=== PATIENT | female | born 1950 | race Caucasian/White ===

== ENCOUNTER 2016-10-30 11:33 | Inpatient (IN) | payer BC, OTHER ==
[2016-10-24 15:51] LABS: HEMATOCRIT 35.5 % (36.0-48.0); HEMOGLOBIN 11.6 g/dL (12.0-16.0)
[2016-10-24 16:03] LABS: CHLORIDE, SERUM 97 MMOL/L (96-112); CO2 (CARBON DIOXIDE) 30 MMOL/L (24-34); CREATININE 1.34 MG/DL (0.55-1.02); GFR AFRICAN AMERICAN 47 ML/MIN (>=60); GFR NON AFRICAN AMERICAN 41 ML/MIN (>=60); SODIUM, SERUM 134 MMOL/L (135-148)
[2016-10-24 16:04] LABS: BUN (BLOOD UREA NITROGEN) 26 MG/DL (6-23); CALCIUM, SERUM 8.8 MG/DL (8.5-10.4); GLUCOSE, SERUM 276 MG/DL (60-99)
--- NOTE | ~2016-10-30 | OP ---
Record Of Operation [facility] [address] [place]. [address] NAME: JAGUAR HANSON : 49 STATUS : ADM IN PAT#: [id number] AGE: 66 ADM/REG DATE : 10/30/16 MR#: [id number] REPORT SERV DATE: 10/30/16 DICTATED BY: RYAN OROURKE DATE: 10/30/16 REPORT STATUS : Draft TRANSCRIBED BY: MODL DATE: 10/30/16 DATE OF PROCEDURE: 10/30/2016 PREOPERATIVE DIAGNOSES: L4-5 recurrent disk herniation with disk disease and stenosis. L5- S1 disc disease and bilateral stenosis. Lumbar radiculopathy. POSTOPERATIVE DIAGNOSIS: L4-5 recurrent disk herniation with disk disease and stenosis. L5- S1 disc disease and bilateral stenosis. Lumbar radiculopathy. PROCEDURE: L4-L5 right-sided transforaminal lumbar interbody fusion, use of local morcellized autograft, use of allograft bone matrix, neuromonitoring, operative microscope, intraoperative O-arm CT scan with computer navigation and placement of pedicle screw instrumentation L4-L5 on the right side from [employer]. SURGEON: Ryan Orourke DO. ANESTHESIA: General. ESTIMATED BLOOD LOSS: 300 mL. COMPLICATIONS: None. INDICATIONS: The patient is a pleasant 66-year-old, who had a recurrent right-sided disc herniation and intractable back and leg pain, failed conservative treatment. After discussion of risks and benefits, elected to proceed with surgery. PROCEDURE IN DETAIL: I identified the patient in the holding area. Consent was obtained. Went to the operating room. Underwent general anesthesia with endotracheal intubation. Prepped and draped in the usual sterile fashion. Operative safety pause was performed, and then we proceeded. The O-arm registration frame was placed in the iliac crest. O-arm was brought in for intraoperative CT scan. Computer registration materials were verified. Under computer guidance, a right longitudinal incision was made over the L4-S1 levels taken down through the fascial layer. Tube dilators were used to minimally invasively dissect down to the right L4-5 interspace. Operative microscope was brought in. A james was used to perform a revision laminotomy and partial facetectomy. Dominick performed a foraminotomy. Disk was incised and multiple free fragments of disk were removed with pituitary. The disk space was prepared with curettes, rasp, and endplate cutters. Due to the severe soft nature of the bone, a peek spacer was not placed due to fear of subsidence. The disk space was packed with local morcellized autograft and allograft bone matrix. Due to the amount of bleeding that the patient had, I opted not to proceed on to the L5-S1 level. I initially planned, given her heart history, she had been off the blood thinners but continued to have more bleeding than I felt comfortable given her cardiac history. O arm was brought back in for a repeat CT scan. Computer registration materials were re-verified and screws were placed on the right-sided L4 and L5, and accomplish made to place screws on the left side as well but due to her very poor bone quality, there was no good purchase on that side, so that was aborted. Paulei was placed over the L4-5 screws, reduced down to the screws. Set screws Record Of Operation [address] [address] NAME: JAGUAR HANSON : 49 STATUS : ADM IN PAT#: [id number] AGE: 66 ADM/REG DATE : 10/30/16 MR#: [id number] REPORT SERV DATE: 10/30/16 DICTATED BY: RYAN OROURKE DATE: 10/30/16 REPORT STATUS : Draft TRANSCRIBED BY: MODL DATE: 10/30/16 were placed and final tightened. Reduction rods were removed for the towers were removed. Final AP and lateral images obtained. Irrigation performed. Hemostasis achieved. A gram of vancomycin powder was sprinkled over the surgical wound. Layered closure performed. Sterile dressings applied. The patient was awoken and extubated, taken to the recovery room in stable condition. OPERATIVE FINDINGS: L4-5 disk disease and stenosis with recurrent disk herniation. No sustained neuromonitoring alerts. REE/MODL Ryan Orourke DO / [id number] CC: DO Tariq Mcadams M.D.
--- NOTE | ~2016-10-30 | CN ---
Consultation Report [facility] [address] [place]. [address] NAME: JAGUAR HANSON : 48 STATUS : ADM IN PAT#: [id number] AGE: 66 ADM/REG DATE : 10/30/16 MR#: [id number] REPORT SERV DATE: 10/31/16 DICTATED BY: DARCY JACOBSEN DATE: 10/30/16 REPORT STATUS : Draft TRANSCRIBED BY: MODL DATE: 10/30/16 DATE OF CONSULTATION: 10/30/2016 REASON FOR CONSULTATION: Consulted for hypertension as well as medical management. IDENTIFYING DATA: 1. Primary care physician, Dr. Tariq Livingston in [place], [place]. 2. Orthopedist, Dr. Ryan Orourke. 3. Golf Coach, Dr. Richard Rose III. 4. Pharmaceutical Physician, Dr. Holbrook. 5. Patient's breast surgeon, Dr. Quinones. HISTORY OF PRESENT ILLNESS: This is a pleasant 66-year-old female with a longstanding history of coronary artery disease, has had several stents as well as a pacemaker, has had previous breast cancer with a mastectomy as well as hypothyroidism noted, obstructive sleep apnea, and diabetic type 2. She is presently admitted by Dr. Ryan Orourke with back pain and bilateral lower extremity pain with paresthesias and weakness upon walking and standing. She is presently status post right L4-L5 microdiskectomy with decompression of right L4 and L5 nerve roots. On admission, her CT report showed an L4-L5 right-sided disk herniation with nerve compression and L4-S1 disk disease and stenosis with facet arthrosis. The patient is back postoperatively and the hospitalist group has been asked to manage her hypertension as well as other medical problems that the patient has. Presently, the patient's blood pressure is stable at 138/72. She is diabetic and her blood sugars are around 276, for which she will receive a sliding scale. The patient's history was obtained through careful interview with the patient, coupled with review of [employer] and [employer]. PAST MEDICAL HISTORY: 1. Lumbar radiculopathy. 2. Renal calculi. 3. Dyslipidemia. 4. Neuropathy. 5. Cataracts. 6. Coronary artery disease. 7. CHF with LVEF at 65% on 09/26/2016. 8. High cholesterol. 9. Heart murmur. 10.First degree AV block. 11.Breast cancer with mastectomy on the left. 12.Osteoarthritis. 13.Hypertension. 14.GERD. 15.Depression. 16.Hypothyroidism. Consultation Report [facility] [address] [place]. [address] NAME: JAGUAR HANSON : 48 STATUS : ADM IN PAT#: [id number] AGE: 66 ADM/REG DATE : 10/30/16 MR#: [id number] REPORT SERV DATE: 10/31/16 DICTATED BY: DARCY JACOBSEN DATE: 10/30/16 REPORT STATUS : Draft TRANSCRIBED BY: JOSE DATE: 10/30/16 17.TIA stroke symptoms. 18.Depression. 19.Obstructive sleep apnea, on CPAP. 20.Diabetes type 2, on home insulin pump. HOME MEDICATIONS: 1. Coreg 3.125 mg p.o. twice a day. 2. Celexa 40 mg p.o. every morning. 3. Neurontin 300 mg p.o. three times daily. 4. [place] 10/325 mg one tablet p.o. every six hours p.r.n. back pain. 5. NovoLog for her home insulin pump as a continuous infusion which she states she gets 2 units/hour with insulin boluses based on carbohydrate intake. 6. Levothyroxine 88 mcg p.o. daily. 7. Magnesium oxide 400 mg p.o. twice a day. 8. Metformin 1000 mg p.o. with breakfast and supper. 9. Zaroxolyn 5 mg p.o. Thursday and a.m. 10.Prilosec 20 mg p.o. every morning. 11.Potassium chloride 20 mEq p.o. twice a day. 12.Aldactone 50 mg p.o. every morning. 13.Effexor XR 75 mg p.o. daily. ALLERGIES: TO AVANDIA. SOCIAL HISTORY: The patient is , has three grown children. She has 10 grandchildren and has 11 great grandchildren. She lives in a home, has a single level, where she uses a cane to ambulate. She uses no tobacco, alcohol, or illicit drugs. States she has no shortness of breath normally when she is up and about around her house. FAMILY HISTORY: 1. Mother was positive for uterine cancer, coronary artery disease, and diabetes. 2. Father was positive for coronary artery disease, NE, and diabetes. 3. Brother had an NE and was diabetic. 4. A younger brother had coronary stents and was diabetic. The patient had three brothers and three sisters. SURGICAL HISTORY: 1. Left mastectomy for breast cancer in 11/2014. 2. Hysterectomy approximately 30 years ago. 3. Pacemaker placement in 2011. 4. Cardiac stents x2 in 2011 and again x1 in 2012. 5. Interocular lens implant in 2011. 6. Appendectomy approximately 40 years ago. 7. Cholecystectomy approximately 35 years ago. 8. Right inguinal hernia surgery in 1999. 9. Tissue MVR closure of PFO and TRICIA ligation, 01/20/2012. Consultation Report [facility] [address] [place]. [address] NAME: JAGUAR HANSON : 48 STATUS : ADM IN [facility]#: [id number] AGE: 66 ADM/REG DATE : 10/30/16 MR#: [id number] REPORT SERV DATE: 10/31/16 DICTATED BY: DARCY JACOBSEN DATE: 10/30/16 REPORT STATUS : Draft TRANSCRIBED BY: JOSE DATE: 10/30/16 10.THERESAI in 04/2015. REVIEW OF SYSTEMS: A 10-point review of systems has noted. The patient is alert and oriented x3. She has no nausea or vomiting. No abdominal pain. No chest pain or shortness of breath. No fever. Displays no confusion or agitation. Presently, she has a blood sugar at 275, which will be treated with a sliding scale. She has a blood pressure that is 138/72 and stable at present. She will be getting ready to sleep and we will order her CPAP as needed at h.s. Presently, all other negative, other than what is in HPI. PHYSICAL EXAMINATION: VITAL SIGNS: From today, blood pressure 138/72, respiratory rate 16, heart rate 82, O2 saturation 98% on 2 L nasal cannula. GENERAL: The patient is a pleasant 66-year-old. She is obese female, resting in bed, in no acute distress. NEURO: Her head is atraumatic, normocephalic. She is alert and oriented x3. Her cranial nerves II through XII are grossly intact. Her mood is pleasant and appropriate. NECK: Supple. Trachea is midline. She has no JVD. No obvious thyromegaly or lymphadenopathy. EENT: Her sclerae are nonicteric. Her pupils are equal and reactive to light. Her mucous membranes are moist. Her nares are patent. Her tongue is midline without deviation. Her soft palate rises equally with phonation. CHEST: No pain with palpation. LUNGS: Her lungs are clear to auscultation bilaterally. She displays a normal respiratory effort. No use of excess muscles bilaterally. No increased work of breathing with conversation. She is presently on O2 at 2 L with a saturation at 98%. CARDIOVASCULAR: S1 and S2. She is on defensive monitoring, which displays a sinus rhythm with a rate at 82 and a first degree AV block. ABDOMEN: Obese, soft, nontender. She has hypoactive bowel sounds. No palpable organomegaly. The patient states her last bowel movement was on 10/30/2016. EXTREMITIES: The patient has normal distal pulses. No edema. No calf tenderness and she has TEDs and SCDs in place for DVT prophylaxis. SKIN: Warm and dry. No unusual rashes or lesions. Normal color and turgor for age. PSYCH: The patient is pleasant and cooperative. Appropriate mood and affect presently. Surgical wound site dressing is clean, dry, and intact. LABORATORY DATA: 1. Sodium 136, potassium 4.4, chloride 102, BUN 17, creatinine 0.98, GFR 60, glucose 281, calcium 9.1. White blood cell 12.0, hemoglobin 10.5, hematocrit 32.2, platelets 327. Blood sugars presently 144, 177, 275, 281, and 237. On 10/24/2016, the patient had an ECG that showed a sinus rhythm, first-degree AV block with PACs and was noted as an abnormal ECG. 2. On 09/01/2014, the patient had a right and left heart catheterization that showed moderate stenosis of the obtuse marginal, a patent right coronary artery stent, marked left ventricular noncompliance with associated pulmonary artery hypertension. Consultation Report [facility] [id number] [facility] [address] NAME: JAGUAR HANSON : 48 STATUS : ADM IN [facility]#: [id number] AGE: 66 ADM/REG DATE : 10/30/16 MR#: [id number] REPORT SERV DATE: 10/31/16 DICTATED BY: DARCY JACOBSEN DATE: 10/30/16 REPORT STATUS : Draft TRANSCRIBED BY: JOSE DATE: 10/30/16 3. A 2D echo was obtained on 09/26/2016 that showed normal LV size and systolic function, aortic valve sclerosis, tissue MVR with mild stenosis and a LVEF 65%. ASSESSMENT/PLAN: 1. The patient is diabetic. She has diabetes type 2. She states she uses an insulin pump at home. She checks her blood sugars five times per day normally. She averages a blood sugar between 117-137. Presently, she is postop. Her metformin is on hold. We will place her on an 1800 ADA diet for the morning. She is taking a few sips of liquids tonight. Have a personal development educator see her regarding her monitoring and her insulin pump management. Tonight, we will place her on a sliding scale level 2 and check her blood sugars at 12 midnight and 6 a.m. in the morning when she is able to eat a normal breakfast without nausea and vomiting. We will resume her insulin pump at the settings, the patient states are 2 units/hour with bolus insulin based on her carbohydrate intake with her meals. 2. Obstructive sleep apnea. It is noted that the patient is on home CPAP. We will continue her CPAP every night and her O2 saturation continuously while she is inpatient. 3. Hypertension. The patient also has a history of transient ischemic attack, pacemaker, coronary artery disease, congestive heart failure, hyperlipidemia. She will be maintained on defensive monitoring while she is inpatient. We will continue her home medications, which include Coreg, Bumex, Zaroxolyn, Aldactone as well as her Lipitor. 4. Hypothyroidism. Aware. We will continue the patient's levothyroxine. We will check a TSH and a free T4 in the morning. 5. Depression. Aware. The patient's Celexa, Effexor, and Abilify will be continued. 6. The patient has a history of breast cancer with a left mastectomy. We are aware. We will continue her daily dose of Arimidex. 7. Gastroesophageal reflux disease. Aware. The patient's Prilosec will be continued daily. Labs to be obtained: BMP, magnesium, phosphorus, CBC, hemoglobin A1c, TSH, free T4, BNP, portable chest x-ray. The patient does have a significant cardiac history. We will decrease her IV fluid rate while she is taken p.o. liquids tonight to 50 an hour and we will continue her cardiac medications as prescribed by her practice business asst in the a.m. The hospitalist group would like to thank you for this consult. Please let us know if we could be of further assistance. GENO Darcy Jacobsen NP / [id number] Consultation Report [address] [address] NAME: JAGUAR HANSON : 48 STATUS : ADM IN PAT#: [id number] AGE: 66 ADM/REG DATE : 10/30/16 MR#: [id number] REPORT SERV DATE: 10/31/16 DICTATED BY: DARCY JACOBSEN DATE: 10/30/16 REPORT STATUS : Draft TRANSCRIBED BY: JOES DATE: 10/30/16 CC: Ryan Orourke, DO Tariq Livingston M.D.
--- NOTE | ~2016-10-30 | PREOPHP ---
PreOp History and Physical [facility] [address] [place]. [address] NAME: JAGUAR HANSON : 48 STATUS : ADM IN PAT#: [id number] AGE: 66 ADM/REG DATE : 10/30/16 MR#: [id number] REPORT SERV DATE: 10/30/16 DICTATED BY: RYAN OROURKE DATE: 10/30/16 REPORT STATUS : Draft TRANSCRIBED BY: JOSE DATE: 10/30/16 CHIEF COMPLAINT: Back pain and bilateral lower extremity pain, paresthesias, and weakness. HISTORY OF PRESENT ILLNESS: The patient is a pleasant 66-year-old, who has had intractable back and leg pain, feelings of weakness, her legs give out on walking. After discussion of risks and benefits, she elects to proceed with surgery. REVIEW OF SYSTEMS: She denies chest pain, shortness of breath, and bowel or bladder changes. ALLERGIES: AVANDIA. HOME MEDICATIONS: Include aripiprazole, aspirin, atorvastatin, bumetanide, carvedilol, citalopram, gabapentin, hydrocodone, Synthroid, magnesium, metformin, methocarbamol, metolazone, NovoLog, omeprazole, polyethylene glycol, potassium, spironolactone, and venlafaxine. PAST MEDICAL HISTORY: Breast cancer, osteoarthritis, hypertension, pacemaker, depression, diabetes, hypothyroidism, stroke, and gastric reflux. PHYSICAL EXAMINATION: VITAL SIGNS: Height 5 feet 2 inches, weight 220, BMI of 40.2. GENERAL: The patient is healthy appearing. In no acute distress. PSYCH: Alert and oriented x3. Normal mood and affect. Gait is unsteady. VASCULAR: No extremity swelling. SPINE: Decreased lumbar motion. HEART: Regular rate and rhythm. LUNGS: Clear to auscultation. ABDOMEN: Soft, nontender, and nondistended with good bowel sounds. BREASTS AND RECTAL: Both deferred. NEUROLOGIC: Strength in the extremities remains intact with the exception of 4/5 for the right tibialis anterior. IMAGING: I have reviewed the CT scan. She does have a recurrent L4-5 right-sided disk herniation with nerve compression, and L4 through S1 disk disease and stenosis with facet arthrosis. ASSESSMENT: 1. Lumbar disk disease and stenosis as detailed above. 2. Lumbar radiculopathy, failed conservative treatment including injections, physical therapy, and medications. PLAN: The patient presents today for surgical intervention. Consent was obtained, will be taken to the operating room. PreOp History and Physical [address] [address] NAME: JAGUAR HANSON : 48 STATUS : ADM IN [facility]#: [id number] AGE: 66 ADM/REG DATE : 10/30/16 MR#: [id number] REPORT SERV DATE: 10/30/16 DICTATED BY: RYAN OROURKE DATE: 10/30/16 REPORT STATUS : Draft TRANSCRIBED BY: MODNahomy DATE: 10/30/16 REE/JOSE Ryan Orourke DO / [id number] CC: DO Tariq Mcadams M.D.
--- NOTE | ~2016-10-30 | DS ---
Discharge Summary [facility] [address] [place]. [address] NAME: JAGUAR HANSON : 48 STATUS : DIS IN PAT#: [id number] AGE: 66 ADM/REG DATE : 10/30/16 MR#: [id number] REPORT SERV DATE: 11/13/16 DICTATED BY: RYAN OROURKE DATE: 11/12/16 REPORT STATUS : Draft TRANSCRIBED BY: JOSE DATE: 11/12/16 Data Collection from hospitalization DISCHARGE DIAGNOSES: 1. L4-5 recurrent disk herniation with disk disease and stenosis. 2. L5-S1 disk disease and bilateral stenosis. 3. Lumbar radiculopathy. 4. Hypertension. 5. Diabetes. 6. Breast cancer. 7. Osteoarthritis. 8. Depression. 9. Hypothyroidism. 10.History of stroke. 11.Gastric reflux. CONSULTATIONS: Darcy Ngo NP PROCEDURES PERFORMED: L4-L5 right-sided foraminal lumbar interbody fusion; use of local morcellized autograft; use of allograft bone matrix, neuromonitoring, operative microscope, intraoperative O-arm CT scan with computer navigation; and placement of pedicle screw instrumentation, L4-L5 on the right side from [employer], 10/30/2016. PATHOLOGY: Spine, lumbar bone and tissue-fibrocartilage consistent with intervertebral disk. Benign bone fragments with degenerative changes. MEDICATIONS: Arimidex 1 mg every morning, Abilify 5 mg every day at bedtime, Lipitor 20 mg at bedtime, Bumex 2 mg every day at bedtime and 4 mg every morning, Coreg 3.125 mg twice a day, Celexa 40 mg every morning, Neurontin 300 mg three times a day, NovoLog injection insulin as instructed, levothyroxine 88 mcg daily, Mag-Ox 400 mg twice a day, Zaroxolyn 5 mg on Mondays/, Prilosec 20 mg every morning, MiraLAX powder one packet daily, Klor- Con 20 mEq twice a day, Aldactone 50 mg every morning, Effexor XR 75 mg daily, aspirin 81 mg every morning, Tylenol 1000 mg every six hours as needed, Glucophage 1000 mg with breakfast and supper, [place] 10/325 one tablet every six hours as needed. CONDITION AT DISCHARGE: Stable. DISPOSITION: The patient was discharged to [facility] on a diabetic diet with activities as instructed. HOSPITAL COURSE: This is a 66-year-old female, who has had intractable back and leg pain and feelings of weakness and her legs give out with walking. She has lumbar disk disease and stenosis as well as lumbar radiculopathy. She had failed conservative treatment. Treatment options were discussed and it was elected to proceed with surgical intervention. She was admitted to the hospital for further evaluation and treatment. Upon admission, she was taken to the operating room, where she underwent the above-mentioned procedure. She tolerated this well and there were no complications. Postoperatively, she Discharge Summary [facility] [id number] [place]. [address] NAME: JAGUAR HANSON : 48 STATUS : DIS IN [facility]#: [id number] AGE: 66 ADM/REG DATE : 10/30/16 MR#: [id number] REPORT SERV DATE: 11/13/16 DICTATED BY: RYAN OROURKE DATE: 11/12/16 REPORT STATUS : Draft TRANSCRIBED BY: JOSE DATE: 11/12/16 was seen by Darcy Ngo regarding hypertension and medical management. Her blood pressure was stable at this time at 138/72. She was placed on sliding scale insulin. She was placed on an 1800-calorie diabetic diet. Metformin was on hold. The patient said she uses an insulin pump at home. She was placed on level 2 sliding scale insulin. Once she was able to eat normally without nausea or vomiting, we would resume her insulin pump. She does have obstructive sleep apnea. She does use home CPAP, which was continued. She has a history of transient ischemic attack, pacemaker, coronary artery disease, congestive heart failure, and hyperlipidemia. She also has hypertension. She was on defensive monitoring while she was an inpatient. Coreg, Bumex, Zaroxolyn, Aldactone, and Lipitor were continued as well as levothyroxine. The patient does have hypothyroidism. TSH and free T4 were going to be checked. Celexa, Effexor, and Abilify were continued. Prilosec was continued as well as Arimidex. On postop day one, she reported having some postop pain, but it was controlled with the CLINIC OFFICE MANAGER. Her diet had been started and the insulin pump was resumed. TOBY/SCDs were in place. She underwent diabetes education. On the , she did complain of pain in the low back. BUN and creatinine had increased. White blood cell count was 16.1. Hemoglobin A1c was 6.8. Blood pressure was controlled. Over the next couple of day, she continued to progress. Discharge planning was performed. She was mobilizing with Physical Therapy. On 11/03/2016, discharge instructions were given. Due to her improved and stable condition, she was discharged to [facility] with the above-stated instructions. Information collected by: Tania Larsen I submit the above information as my discharge summary. TG/MODL Ryan Orourke DO / [id number] CC: DO Tariq Mcadams M.D. [facility]
--- NOTE | ~2016-10-30 | CN ---
Consultation Report [facility] [address] [facility] [address] NAME: AGNES ARRIETA : 48 STATUS : ADM IN PAT#: [id number] AGE: 66 ADM/REG DATE : 10/30/16 MR#: [id number] REPORT SERV DATE: 10/30/16 DICTATED BY: DARCY JACOBSEN DATE: 10/30/16 REPORT STATUS : Draft TRANSCRIBED BY: MODL DATE: 10/30/16 DATE OF CONSULTATION: ADDENDUM: Addendum to the dictation of [id number] under the medication list. Agnes Arrieta takes also: 1. Tylenol 1000 mg p.o. every 6 hours p.r.n. back pain. 2. Arimidex 1 mg p.o. every morning. 3. Abilify 5 mg p.o. every day at bedtime. 4. Aspirin 81 mg p.o. every morning. 5. Lipitor 20 mg p.o. at bedtime. 6. Bumex 2 mg p.o. every day at bedtime. 7. Bumex 4 mg p.o. every morning. GENO Darcy Jacobsen NP / [id number] CC: Ryan Orourke DO
[~2016-10-30 11:33] MED LIST: ABILIFY5 PO; ACET500CAP PO; ARIMIDEX1 PO; ASAB PO; BUM2 PO; CELEXA40 MG PO; COREG3 PO; EFFEXXR75 PO; GLUCOPHAGE1000 MG PO; KLOR-CON M2020 MEQ PO; LANTUS SC; LEVOTHYROXIN88 MCG PO; LIPITOR20 PO; MAGOX4 PO; NEUR300 PO; NORCO1 TA2 PO; NORCO1 TAB PO; NOVLOGPUMP SC; NOVOLOG SC; PRILO PO; SPIRO50 PO; Z5 PO
[2016-10-30 18:05] LABS: BASOPHILS 0.3 %; BASOPHILS ABSOLUTE 0.04 10/3/uL (0.0-0.16); EOSINOPHILS 0.9 %; EOSINOPHILS ABSOLUTE 0.11 10/3/uL (0.0-0.53); HEMATOCRIT 32.2 % (36.0-48.0); HEMOGLOBIN 10.5 g/dL (12.0-16.0); IMMATURE GRANULOCYTES 0.7 %; IMMATURE GRANULOCYTES ABSOLUTE 0.08 10/3/uL (0.0-0.11); LYMPHOCYTES 10.8 %; LYMPHOCYTES ABSOLUTE 1.29 10/3/uL (0.67-4.30); MEAN CORPUS HGB CONC 32.6 g/dL (32.0-36.0); MEAN CORPUSCULAR HEMOGLOB 27.7 pg (26.0-34.0); MEAN PLATELET VOLUME 10.1 fL (9.2-13.0); MONOCYTES 1.5 %; MONOCYTES ABSOLUTE 0.18 10/3/uL (0.21-1.20); NEUTROPHILS 85.8 %; NEUTROPHILS ABSOLUTE 10.28 10/3/uL (2.02-8.40); PLATELET COUNT 327 10/3/uL (150-400); RBC DISTRIBUTION WIDTH 13.9 % (12.0-16.0); RED CELL COUNT 3.79 10/6/uL (4.0-5.6)
[2016-10-30 18:09] LABS: MANUAL DIFF NO %
[2016-10-30 18:20] LABS: BUN (BLOOD UREA NITROGEN) 17 MG/DL (6-23); CALCIUM, SERUM 9.1 MG/DL (8.5-10.4); CHLORIDE, SERUM 102 MMOL/L (96-112); CO2 (CARBON DIOXIDE) 28 MMOL/L (24-34); CREATININE 0.98 MG/DL (0.55-1.02); GFR AFRICAN AMERICAN 69 ML/MIN (>=60); GFR NON AFRICAN AMERICAN 60 ML/MIN (>=60); GLUCOSE, SERUM 281 MG/DL (60-99); POTASSIUM, SERUM 4.4 MMOL/L (3.5-5.3); SODIUM, SERUM 136 MMOL/L (135-148)
[2016-10-31 05:16] LABS: BASOPHILS 0.1 %; BASOPHILS ABSOLUTE 0.01 10/3/uL (0.0-0.16); EOSINOPHILS 0 %; HEMOGLOBIN 9.6 g/dL (12.0-16.0); IMMATURE GRANULOCYTES 0.2 %; IMMATURE GRANULOCYTES ABSOLUTE 0.04 10/3/uL (0.0-0.11); LYMPHOCYTES 5.8 %; LYMPHOCYTES ABSOLUTE 0.93 10/3/uL (0.67-4.30); MEAN CORPUS HGB CONC 33.2 g/dL (32.0-36.0); MEAN CORPUSCULAR HEMOGLOB 28.1 pg (26.0-34.0); MEAN CORPUSCULAR VOLUME 84.5 fL (80-100); MEAN PLATELET VOLUME 10.3 fL (9.2-13.0); MONOCYTES 5.7 %; MONOCYTES ABSOLUTE 0.92 10/3/uL (0.21-1.20); NEUTROPHILS 88.2 %; NEUTROPHILS ABSOLUTE 14.22 10/3/uL (2.02-8.40); PLATELET COUNT 316 10/3/uL (150-400); RBC DISTRIBUTION WIDTH 13.8 % (12.0-16.0); RED CELL COUNT 3.42 10/6/uL (4.0-5.6); WHITE BLOOD CELLS 16.1 10/3/uL (4.5-10.5)
[2016-10-31 05:32] LABS: HEMATOCRIT 28.9 % (36.0-48.0); MANUAL DIFF NO %
[2016-10-31 05:39] LABS: BUN (BLOOD UREA NITROGEN) 17 MG/DL (6-23); CALCIUM, SERUM 9.1 MG/DL (8.5-10.4); CHLORIDE, SERUM 98 MMOL/L (96-112); CO2 (CARBON DIOXIDE) 26 MMOL/L (24-34); CREATININE 0.98 MG/DL (0.55-1.02); FREE T4 1.32 NG/DL (0.76-1.46); GFR AFRICAN AMERICAN 69 ML/MIN (>=60); GFR NON AFRICAN AMERICAN 60 ML/MIN (>=60); GLUCOSE, SERUM 265 MG/DL (60-99); PHOSPHORUS, SERUM 2.9 MG/DL (2.5-4.5); POTASSIUM, SERUM 4.7 MMOL/L (3.5-5.3); SODIUM, SERUM 131 MMOL/L (135-148); ULTRASENSITIVE TSH 0.166 MCIU/ML (0.358-3.740)
[2016-10-31 05:41] LABS: BAND NEUTROPHILS 3 %; LYMPHOCYTES 6 %; LYMPHOCYTES ABSOLUTE (CALC) 0.97 10/3/uL (0.67-4.30); MONOCYTES 7 %; MONOCYTES ABSOLUTE (CALC) 1.13 10/3/uL (0.21-1.20); NEUTROPHILS ABSOLUTE (CALC) 14.01 10/3/uL (2.02-8.40); SEGMENTED NEUTROPHIL (0) 84 %; TOTAL NUCLEATED CELLS 100
[2016-10-31 05:42] LABS: PLATELET ESTIMATE ADQ (ADEQUATE); RBC MORPHOLOGY NORM (NORMAL)
[2016-10-31 05:59] LABS: B NATRIURETIC PEPTIDE (BNP) 135.2 PG/ML (< 100.0)
[2016-10-31 07:41] LABS: GLYCOHEMOGLOBIN (HbA1c) 6.7 % (4.7-6.1)
[2016-11-01 08:17] LABS: BASOPHILS 0.3 %; BASOPHILS ABSOLUTE 0.04 10/3/uL (0.0-0.16); EOSINOPHILS 1.9 %; EOSINOPHILS ABSOLUTE 0.24 10/3/uL (0.0-0.53); HEMATOCRIT 26.9 % (36.0-48.0); IMMATURE GRANULOCYTES 0.4 %; IMMATURE GRANULOCYTES ABSOLUTE 0.05 10/3/uL (0.0-0.11); LYMPHOCYTES ABSOLUTE 1.78 10/3/uL (0.67-4.30); MEAN CORPUS HGB CONC 33.5 g/dL (32.0-36.0); MEAN CORPUSCULAR HEMOGLOB 28.3 pg (26.0-34.0); MEAN CORPUSCULAR VOLUME 84.6 fL (80-100); MEAN PLATELET VOLUME 9.7 fL (9.2-13.0); MONOCYTES 6.7 %; MONOCYTES ABSOLUTE 0.85 10/3/uL (0.21-1.20); NEUTROPHILS 76.7 %; NEUTROPHILS ABSOLUTE 9.71 10/3/uL (2.02-8.40); PLATELET COUNT 265 10/3/uL (150-400); RBC DISTRIBUTION WIDTH 13.9 % (12.0-16.0); RED CELL COUNT 3.18 10/6/uL (4.0-5.6); WHITE BLOOD CELLS 12.7 10/3/uL (4.5-10.5)
[2016-11-01 08:20] LABS: MANUAL DIFF NO %
[2016-11-01 08:29] LABS: CALCIUM, SERUM 8.7 MG/DL (8.5-10.4); CHLORIDE, SERUM 94 MMOL/L (96-112); CO2 (CARBON DIOXIDE) 30 MMOL/L (24-34); CREATININE 1.21 MG/DL (0.55-1.02); GFR AFRICAN AMERICAN 54 ML/MIN (>=60); GFR NON AFRICAN AMERICAN 46 ML/MIN (>=60); GLUCOSE, SERUM 225 MG/DL (60-99); SODIUM, SERUM 131 MMOL/L (135-148)
[2016-11-01 08:30] LABS: BUN (BLOOD UREA NITROGEN) 24 MG/DL (6-23); POTASSIUM, SERUM 3.7 MMOL/L (3.5-5.3)
[2016-11-02 04:18] LABS: BASOPHILS 0.3 %; BASOPHILS ABSOLUTE 0.03 10/3/uL (0.0-0.16); EOSINOPHILS 2.5 %; HEMATOCRIT 27.7 % (36.0-48.0); HEMOGLOBIN 9.4 g/dL (12.0-16.0); IMMATURE GRANULOCYTES 0.4 %; IMMATURE GRANULOCYTES ABSOLUTE 0.05 10/3/uL (0.0-0.11); LYMPHOCYTES 14.5 %; LYMPHOCYTES ABSOLUTE 1.71 10/3/uL (0.67-4.30); MEAN CORPUS HGB CONC 33.9 g/dL (32.0-36.0); MEAN CORPUSCULAR HEMOGLOB 28.4 pg (26.0-34.0); MEAN CORPUSCULAR VOLUME 83.7 fL (80-100); MEAN PLATELET VOLUME 10.1 fL (9.2-13.0); MONOCYTES 7.7 %; MONOCYTES ABSOLUTE 0.91 10/3/uL (0.21-1.20); NEUTROPHILS 74.6 %; NEUTROPHILS ABSOLUTE 8.82 10/3/uL (2.02-8.40); PLATELET COUNT 272 10/3/uL (150-400); RBC DISTRIBUTION WIDTH 13.8 % (12.0-16.0); RED CELL COUNT 3.31 10/6/uL (4.0-5.6); WHITE BLOOD CELLS 11.8 10/3/uL (4.5-10.5)
[2016-11-02 04:20] LABS: MANUAL DIFF NO %
[2016-11-02 04:34] LABS: BUN (BLOOD UREA NITROGEN) 24 MG/DL (6-23); CALCIUM, SERUM 8.8 MG/DL (8.5-10.4); CHLORIDE, SERUM 92 MMOL/L (96-112); CO2 (CARBON DIOXIDE) 34 MMOL/L (24-34); CREATININE 1.15 MG/DL (0.55-1.02); GFR AFRICAN AMERICAN 57 ML/MIN (>=60); GFR NON AFRICAN AMERICAN 49 ML/MIN (>=60); PHOSPHORUS, SERUM 2.3 MG/DL (2.5-4.5); POTASSIUM, SERUM 3.9 MMOL/L (3.5-5.3); SODIUM, SERUM 134 MMOL/L (135-148)
[2016-11-02 04:36] LABS: GLUCOSE, SERUM 154 MG/DL (60-99)
[2016-11-03 04:09] LABS: BASOPHILS 0.3 %; BASOPHILS ABSOLUTE 0.03 10/3/uL (0.0-0.16); EOSINOPHILS ABSOLUTE 0.41 10/3/uL (0.0-0.53); HEMATOCRIT 27.4 % (36.0-48.0); HEMOGLOBIN 9.3 g/dL (12.0-16.0); IMMATURE GRANULOCYTES 0.4 %; IMMATURE GRANULOCYTES ABSOLUTE 0.04 10/3/uL (0.0-0.11); LYMPHOCYTES 14.7 %; LYMPHOCYTES ABSOLUTE 1.52 10/3/uL (0.67-4.30); MEAN CORPUS HGB CONC 33.9 g/dL (32.0-36.0); MEAN CORPUSCULAR HEMOGLOB 28.4 pg (26.0-34.0); MEAN CORPUSCULAR VOLUME 83.5 fL (80-100); MEAN PLATELET VOLUME 9.8 fL (9.2-13.0); MONOCYTES 8.8 %; MONOCYTES ABSOLUTE 0.91 10/3/uL (0.21-1.20); NEUTROPHILS 71.8 %; NEUTROPHILS ABSOLUTE 7.44 10/3/uL (2.02-8.40); PLATELET COUNT 287 10/3/uL (150-400); RBC DISTRIBUTION WIDTH 13.9 % (12.0-16.0); RED CELL COUNT 3.28 10/6/uL (4.0-5.6); WHITE BLOOD CELLS 10.4 10/3/uL (4.5-10.5)
[2016-11-03 04:10] LABS: MANUAL DIFF NO %
[2016-11-03 04:37] LABS: PHOSPHORUS, SERUM 2.5 MG/DL (2.5-4.5)
== END 2016-11-03 16:01 | DRG 460 ==
LOC: SDC/OF 11:33 → 3SO 19:42
PROVIDERS: Nurse Practitioner Acute Care; Nurse Practitioner Family; Orthopaedic Surgery
PROC: 0SG00AJ Fusion of Lumbar Vertebral Joint with Interbody Fusion Device, Posterior Approach, Anterior Column, Open Approach (ICD-10-PCS; principal; 2016-10-30 13:15)
PROC: 4A11X4G Monitoring of Peripheral Nervous Electrical Activity, Intraoperative, External Approach (ICD-10-PCS; 2016-10-30 13:15)
DX: M51.16 Intervertebral disc disorders with radiculopathy, lumbar region (principal); I11.0 Hypertensive heart disease with heart failure; I50.32 Chronic diastolic (congestive) heart failure; E11.9 Type 2 diabetes mellitus without complications; G47.33 Obstructive sleep apnea (adult) (pediatric); I25.10 Atherosclerotic heart disease of native coronary artery without angina pectoris; E78.5 Hyperlipidemia, unspecified; E03.9 Hypothyroidism, unspecified; F32.9 Major depressive disorder, single episode, unspecified; K21.9 Gastro-esophageal reflux disease without esophagitis; Z95.0 Presence of cardiac pacemaker; Z86.73 Personal history of transient ischemic attack (TIA), and cerebral infarction without residual deficits
CPT/HCPCS: 36415; 71010; 80048; 82962; 83036; 83735; 83880; 84100; 84439; 84443; 85014; 85018; 85025; 86850; 86900; 86901; 87641; 88304; 88311; 93005; 97110-GP; 97116-GP; 97162-GP; 97530-GP; A9270-GY; C1713; J0690; J1030; J1170; J1644; J2250; J2270; J2370; J2405; J2710; J3010; J3370; P9045